=== PATIENT | female | born 1985 | race Caucasian/White ===

== ENCOUNTER 2020-11-18 20:30 | Emergency (ER) | payer OTHER ==
[2020-11-18 20:47] VITALS: BP 140/83
--- NOTE | 2020-11-18 21:27 | XRAY Report ---
PROCEDURE: Ankle 3 View LT INDICATIONS: Trauma TECHNIQUE: 3 views of the ankle were acquired. COMPARISON: None FINDINGS: Bones: No fractures or dislocations. Ankle mortise is normally aligned. No suspicious bony lesions . Soft tissues: No tibiotalar joint effusion. Achilles tendon appears normal. Soft tissue swelling is noted and ligamentous injury cannot be excluded. IMPRESSION: No fracture. No osseous lesion. If there are persistent symptoms or continued clinical concern for pa thology, then repeat plain film radiographs (7-10 days) or advanced imaging (CT, MR, bone scan) shoul d be considered for further evaluation. Reviewed by: Clau Castillo MD, PhD on 11/18/2020 9:25 PM PDT Approved by: Clau Castillo MD, PhD on 11/18/2020 9:25 PM PDT Station ID: [id number]
--- NOTE | 2020-11-18 23:39 | ED Physician Documentation ---
PD HPI LOWER EXT INJURY - Stated complaint Stated Complaint: FALL/LT ANKLE PX - Chief complaint Chief Complaint: Ext Problem - History obtained from History obtained from: Patient - History of Present Illness PD HPI LOW EXT INJURY LOCATION: Left, Ankle Type of injury: Fall Where injury occurred: Home (in yard of her house) Timing - onset: Enter time (17:00), Today Timing - details: Abrupt onset Pain level now: 4 Improved by: Rest Worsened by: Moving, Palpating Associated symptoms: Swelling. No: Weakness, Numbness, Discolored Similar symptoms before: Has not had sx before Recently seen: Not recently seen - Additional information Additional information: patient complains of sudden onset of left ankle pain that occurred at approximately 5 PM today when she was walking in the yard around her house and tripped over a log she could not see due to the thick grass around it. This caused her to twist the ankle, and she has had left ankle pain since that time. She is able to partially weight bear but this exacerbates the pain. Review of Systems Musculoskeletal: reports: Joint pain, Joint swelling, Pain with weight bearing Neurologic: denies: Focal weakness, Numbness PD PAST MEDICAL HISTORY - Past Medical History Past Medical History: No - Present Medications Home Medications: Ambulatory Orders Medication Instructions Recorded Confirmed No Known Home Medications 11/18/20 11/18/20 - Allergies Allergies/Adverse Reactions: Allergies Allergy/AdvReac Type Severity Reaction Status Date / Time sulfamethoxazole Allergy Hives Verified 11/18/20 20:46 [From Bactrim] trimethoprim [From Bactrim] Allergy Hives Verified 11/18/20 20:46 - Social History Does the pt smoke?: No Smoking Status: Never smoker Does the pt drink ETOH?: No Does the pt have substance abuse?: No - Immunizations Immunizations are current?: Yes PD ED PE NORMAL - Vitals Vital signs reviewed: Yes - General General: Alert and oriented X 3, No acute distress, Well developed/nourished - Derm Derm: Normal color, Warm and dry PD ED PE EXPANDED - Extremities Extremities: Tenderness, Limited ROM, Swelling, Left ankle, Other (Tenderness to palpation and swelling of left ankle, predominantly lateral malleolus) Results - Vitals Vitals: Vital Signs - 24 hr 11/18/20 20:39 Temperature 37 C Heart Rate 94 Respiratory 16 Rate Blood Pressure 140/83 H O2 Saturation 98 Oxygen O2 Source Room air - Rads (name of study) Left ankle xrays Radiology: Prelim report reviewed, See rad report PD MEDICAL DECISION MAKING - ED course Complexity details: reviewed results, re-evaluated patient, considered differential, d/w patient ED course: patient sustained twisting injury to her left ankle 5 PM today. X-rays are unremarkable except for soft tissue swelling. She declines pain medication stronger than ibuprofen, and she is given a dose of 600 mg ibuprofen in the emergency department prior to discharge. She is also provided with crutches and an air cast splint is placed on the left ankle. Departure - Departure Disposition: Home, Self Care Clinical Impression: Left ankle sprain Condition: Good Instructions: ED Sprain Ankle W X Ray, ED Crutch Walking Follow-Up: Akash Yanes MD [Provider Admit Priv/Credential] - Within 1 week Discharge Date/Time: 11/19/20 00:05
[2020-11-18] MEDS ORDERED: IBUPROFEN 600 MG TABLET PO STA (23:58)
== END 2020-11-19 00:05 | disposition home or self-care (01) ==
LOC: ED 20:30
DX: S93.402A Sprain of unspecified ligament of left ankle, initial encounter (principal); W18.40XA Slipping, tripping and stumbling without falling, unspecified, initial encounter; Y93.01 Activity, walking, marching and hiking; Y92.007 Garden or yard of unspecified non-institutional (private) residence as the place of occurrence of the external cause
CPT/HCPCS: 73610; 99282; 99283; A9270